=== PATIENT | male | born 1960 | race Caucasian/White ===

== ENCOUNTER 2017-03-21 19:53 | Emergency (ER) | payer OTHER ==
--- NOTE | 2017-03-21 20:24 | ED UPPER/LOWER EXTREMITY COMPL ---
History of Present Illness General Chief Complaint: Laceration Procedure Stated Complaint: LAC TO LEFT RING AND PINKY FINGER Source: patient Exam Limitations: no limitations Vital Signs & Intake/Output Vital Signs & Intake/Output Vital Signs Date Time Temp Pulse Resp B/P B/P Pulse O2 O2 Flow FiO2 Mean Ox Delivery Rate 03/21 2048 Room Air 03/21 2006 97.0 91 20 148/90 Allergies Coded Allergies: No Known Allergies (03/21/17) Triage Note: PER PT CUT L 5TH DIGIT ON LAWNMOWER AFTER CUTTING GRASS, UNSURE OF LAST TETANUS BLEEDING CONTROLLED TO L5TH DIGIT Triage Nurses Notes Reviewed? yes Onset: Abrupt Duration: constant Severity: mild Severity Numbers: 3 HPI: Patient is a 57-year-old male who presents emergency and seen that he was trying to look underneath the lawnmower after he turned it off however the blade was still turning and struck patient to the distal aspect of his left fifth digit of his finger resulting in multiple lacerations. No nail involvement. Bleeding was controlled prior to arrival. Tetanus is unknown. Patient is right arm dominant. (RADHA VALDEZ) Past History Travel History Traveled to [place] past 21 day No Medical History Any Pertinent Medical History? none Neurological: NONE EENT: NONE Cardiovascular: NONE Respiratory: NONE Gastrointestinal: NONE Hepatic: NONE Renal: NONE Musculoskeletal: NONE Psychiatric: NONE Endocrine: NONE Surgical History Surgical History: non-contributory Psychosocial History What is your primary language Bel[place]ian Tobacco Use: Current Not Daily Daily Tobacco Use Amount/Type: =< 4 Cigarettes daily Family History Hx Contributory? No (RADHA VALDEZ) Review of Systems Review of Systems Constitutional: Reports: no symptoms. EENTM: Reports: no symptoms. Respiratory: Reports: no symptoms. Cardiovascular: Reports: no symptoms. Gastrointestinal/Abdominal: Reports: no symptoms. Genitourinary: Reports: no symptoms. Musculoskeletal: Reports: see HPI. Skin: Reports: see HPI. Neurological/Psychological: Reports: no symptoms. Hematologic/Endocrine: Reports: see HPI, bleeding. Immunological: Reports: no symptoms. All Other Systems: Reviewed and Negative (RADHA VALDEZ) Physical Exam Physical Exam General Appearance: no apparent distress, alert, comfortable Head: atraumatic Neurologic/Tendon: normal sensation, normal motor functions, normal tendon functions, responds to pain, no evidence tendon injury, no pulse deficit Skin: normal color, warm/dry Comments: Well-developed well-nourished no apparent distress. HEENT: Atraumatic, extraocular motion intact Neck: Supple, no lymphadenopathy Back: Nontender Respiratory: No respiratory distress Extremities: No edema, full range of motion Neuro: Alert and oriented x3 Psych: Mood affect normal, normal memory normal judgment. Diagram Hands Front 1) Noted 3 mm superficial flap SKIN avulsion no active bleeding 2) 5 mm superficial flap laceration noted no nail involvement No active bleeding 3) Full active range of motion noted with flexion and extension full resisted range of motion no tendon deficit no exposed bone dermatomes intact capillary refill less than 2 seconds (RADHA VALDEZ) Progress Differential Diagnosis: arterial insufficiency, contusion, dislocation, DVT, fracture, gout, septic arthritis, sprain, tendon injury Plan of Care: No concern of tendon deficit or fracture at this time. L.E.T. was applied for local anesthesia PRIOR TO THE LACERATION REPAIR Margins were revised with suture placement. Patient tolerated well Patient was offered pain medications and declined (RADHA VALDEZ) Departure Departure Disposition: HOME OR SELF CARE Condition: Stable Clinical Impression Primary Impression: Laceration of left little finger Secondary Impressions: Avulsion, finger tip Referrals: JESSICA MERIDA,KYARA Beltrán (PCP/Family) Additional Instructions: As discussed begin to apply the Xeroform provided to YOU IN the emergency room and change the wounds once today with the extra bandages provided to you. AFTER DAY 5, LEAVE THE WOUND OPEN TO IMPROVE HEALING. If you note signs of infection redness, pain, swelling, discharge return to emergency room. Return to the emergency room in 7 days for suture removal. Begin [id number] ibuprofen for pain and inflammation KEEP AREA DRY AND CLEAN YOU CAN. Departure Forms: Customer Survey General Discharge Information (RADHA VALDEZ) PA/CAR COOPER Co-Sign Statement Statement: ED Attending supervision documentation- [] I saw and evaluated the patient. I have also reviewed all the pertinent lab results and diagnostic results. I agree with the findings and the plan of care as documented in the PA's/CAR COOPER's documentation. [X] I have reviewed the ED Record and agree with the PA's/CAR COOPER's documentation. [] Additions or exceptions (if any) to the PAs/CAR COOPER's note and plan are summarized below: [] (NATALIYA PALENCIA DO) Procedures Laceration/Wound Repair Laceration/Wound Repair: Wound Location: upper extremity (LEFT FIFTH DIGIT) Wound's Depth, Shape: superficial Wound Length (cm): 0.5 Wound Explored: clean, no foreign body removed, irrigated extensively Irrigated w/ Saline (ccs): 360 Betadine Prep? Yes Wound Debrided: FLAP SKIN ABRASION WAS EXCISED Wound Repaired With: sutures Suture Size/Type: 6:0 Number of Sutures: 2 Layer Closure? No Progress: MARGINS WERE REVISED WITH SUTURE PLACEMENT XEROFORM WAS APPLIED OVER THE LACERATION AND THE SKIN AVULSION SITE BANDAGE WAS THEN APPLIED (RADHA VALDEZ)
[2017-03-21 21:47] VITALS: BP 143/90
== END 2017-03-21 21:48 ==
LOC: ERH 19:53
DX: S61.217A Laceration without foreign body of left little finger without damage to nail, initial encounter (principal); W28.XXXA Contact with powered lawn mower, initial encounter; Y92.9 Unspecified place or not applicable; Y93.9 Activity, unspecified
CPT/HCPCS: 90471